=== PATIENT | female | born 1980 | race Caucasian/White ===

== ENCOUNTER 2016-12-21 18:20 | Emergency (ER) | payer OTHER ==
[~2016-12-21] VITALS: Ht 177.8 cm; Wt 90.9 kg
[2016-12-21 18:39] VITALS: BP 123/81; PULSE 111; RESP 16; O2SAT 97
--- NOTE | 2016-12-21 20:48 | ED.REPORT ---
HPI-General Illness Date of Service Dec 21, 2016 ED Provider: Kiel Rose MD This is a 36 year old male presenting to the emergency department complaining of fever and chills that began 2 days ago. Associated symptoms include non- productive cough, headache, diffuse myalgias, and sore throat. Denies chest pain , shortness of breath, nausea, vomiting, diarrhea, abdominal pain, or dysuria. Pt's son recently tested positive for influenza and treated with Tamiflu. Nursing Notes Stated Complaint: COUGH, CHILLS, FEVER, HEADACHE, BODYACHE Chief Complaint: FLU/Cold Symptoms Nursing Notes Reviewed: Yes Scheduled Promethazine DM Syrup (Promethazine DM Syrup) 118 Ml Syrup 5 ML PO HS Scheduled PRN Ibuprofen (Ibuprofen) 800 Mg Tablet 800 MG PO TID PRN PRN For Pain General Time Seen by MD: 20:26 Chief Complaint Not feeling well Hx Obtained From: Patient Arrived By: Walk-in Sudden in Onset?: Yes Onset Occurred: 2 days ago Symptom Duration: Since onset Severity: Current: Mild Pertinent Negative: Pt denies other symptoms Recent Healthcare: No recent doctor visit, No recent hospitalization Similar Sx Previous: No Past Medical History Past Medical History Denies Past Surgical History Denies Ambulatory Status Independent Review of Systems Full Review of Systems Constitutional: Reports: Chills, Fever, Malaise Ears / Nose / Throat: Reports: Sore throat Respiratory: Reports: Non-productive cough, Denies: Shortness of breath Cardiovascular: Denies: Chest pain GI: Denies: Abdominal pain, Constipation, Diarrhea, Nausea, Vomiting Musculoskeletal: Denies: Back pain, Neck pain Neurologic: Reports: Headache Complete sys rev & neg: except as marked. Physical Exam Vital Signs Vital Signs Date Time Temp Pulse Resp B/P Pulse Ox O2 Delivery O2 Flow Rate FiO2 12/21/16 18:39 38.1 111 16 123/81 97 Room Air Initial VS: Reviewed General/Constitutional: Well-developed, Well-nourished Head / Eyes: Atraumatic, Normocephalic, PERRL Neck: Supple, Non-tender, Full range of motion Respiratory: Breath sounds normal, Clear to auscultation, No respiratory distress Cardiovascular: Regular rate & rhythm, Heart sounds normal, Intact distal pulses Abdomen / GI: Soft, Non-tender, No guarding, No rebound, No distention Extremities: Vascular intact, Neuro intact, No swelling, No tenderness Skin: Warm, Dry, No cyanosis Neurologic: Alert, Oriented, Nonfocal Psychiatric: Mood/affect normal, Behavior normal, Normal thought content ENT: Tympanic membs NL Oropharynx erythematous without exudate Re-Eval/Medical Decision Med Decision/Clinical Course 36-year-old male presenting complaining of cough, sore throat, runny nose, headache 2 days. Vital signs stable. No meningeal symptoms. Exam is reassuring as above. Influenza negative. Chest x-ray clear. Patient with viral syndrome. Discharged home with cough syrup. Recommend ibuprofen as needed. Return precautions given. Counseled Regarding: Diagnosis, Lab results, Need for follow-up, When/why to return to ED Discharge & Departure Primary Impression: Viral syndrome Disposition: Home Discharge Condition All VS Reviewed: Yes Condition: Stable Additional Instructions: Tylenol or ibuprofen as needed for fever and pain control. Follow-up with your primary care provider. Return to the emergency department if you develop any new or worsening symptoms. Referrals: [facility] (PCP) Scribe Attestation Portions of this note were transcribed by Tulio Thomas. I, Dr. Rose personally performed the history, physical exam and medical decision-making; I reviewed and confirmed the accuracy of the information in the transcribed note. Signed by Shivam Fuentes, 12/21/2016 at 23:00. Kiel Rose MD Dec 21, 2016 20:48 TULIO THOMAS Dec 21, 2016 20:51
[2016-12-21] MEDS ORDERED: Ketorolac 30 mg/mL 2 mL Inj IM ONE (20:50)
--- NOTE | 2016-12-21 21:55 | DRSVH ---
PROCEDURE: X-RAY CHEST ONE VIEW ([id number]) INDICATIONS: cough TECHNIQUE: One view of the chest was acquired. COMPARISON: None. FINDINGS: Surgical changes and devices: None. Lungs and pleura: No pleural effusions or pneumothorax. Lungs are clear. Mediastinum: Mediastinal contours appear normal. Heart size is normal. Bones and chest wall: No suspicious bony lesions. Overlying soft tissues appear unremarkable. IMPRESSION: No acute cardiopulmonary findings. Dictated by: Melani Davies M.D. on 12/21/2016 at 21:53 Approved by: Melani Davies M.D. on 12/21/2016 at 21:53
[2016-12-21] MEDS ORDERED: D-ME118S8 PO (22:06)
[2016-12-21] MEDS ORDERED: IBUP800T28 PO (22:06)
== END 2016-12-21 22:10 | disposition home or self-care (01) ==
LOC: SED 18:20
DX: B34.9 Viral infection, unspecified (principal)
CPT/HCPCS: 71010; 87804; 96372; 99284; J1885